=== PATIENT | female | born 1975 | race Caucasian/White ===

== ENCOUNTER 2023-07-14 20:00 | Outpatient (CLI) | payer BC, SELFPAY | END 2023-07-14 20:01 | disposition home or self-care (01) | LOC: SLEEP 07-15 05:25 | PROVIDERS: Visit Provider Family Medicine | DX: G47.30 Sleep apnea, unspecified (principal); G47.10 Hypersomnia, unspecified; I10 Essential (primary) hypertension; E66.9 Obesity, unspecified; Z68.38 Body mass index [BMI] 38.0-38.9, adult; F32.A Depression, unspecified; F41.9 Anxiety disorder, unspecified; G62.9 Polyneuropathy, unspecified; I73.9 Peripheral vascular disease, unspecified; M79.7 Fibromyalgia; F17.210 Nicotine dependence, cigarettes, uncomplicated | CPT/HCPCS: 95810 ==

== ENCOUNTER 2023-08-10 12:30 | Outpatient (CLI) | payer BC, SELFPAY ==
--- NOTE | 2023-08-10 12:36 | USCV_ITS ---
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
== END 2023-08-10 12:31 | disposition home or self-care (01) ==
LOC: RAD 12:31
PROVIDERS: Visit Provider Family Medicine
DX: I73.9 Peripheral vascular disease, unspecified (principal)
CPT/HCPCS: 93922